=== PATIENT | male | born 1990 | race Caucasian/White ===

== ENCOUNTER 2025-01-16 10:17 | Outpatient (CLI) | payer MEDICAID, SELFPAY | END 2025-01-16 10:18 | disposition home or self-care (01) | PROVIDERS: Visit Provider Family Medicine | DX: S09.90XA Unspecified injury of head, initial encounter (principal); V49.40XA Driver injured in collision with unspecified motor vehicles in traffic accident, initial encounter; Y92.410 Unspecified street and highway as the place of occurrence of the external cause | CPT/HCPCS: A0425; A0427 ==

== ENCOUNTER 2025-01-16 10:49 | Emergency (ER) | payer MEDICAID, SELFPAY ==
[2025-01-16] VITALS (9 sets, daily range): BP systolic 119–130; BP diastolic 80–94; PULSE 65–79; RESP 20; TEMP 35.9; O2SAT 97–99; BMI 21.5
--- OUTSIDE RECORDS SUMMARY | 2025-01-16 10:51 | XMS_ITS | Clinical Summary ---
Author Organization [facility] Address [address] [place] [address] Care Team Providers Care Steel Pickler Name Role Phone Pcp, No Primary Care Provider Unavailabl e Allergies No known active allergies Medications albuterol HFA (ProAir HFA) 90 mcg/actuation inhalerIndicat ions:Acute viral bronchitis Inhale 1-2 Puffs by mouth every 6 hours if needed for Shortness Of Breath or Wheezing. 1 Each 2 Active benzonatate (TESSALON) 200 mg capsuleIndicat ions:Acute viral bronchitis Take 1 Capsule (200 mg) by mouth 3 times daily if needed for Cough. 20 Capsule 2 Active methylPREDNISo lone (MEDROL DOSEPAK) 4 mg tabletIndicati ons:Acute bilateral low back pain without sciatica Take by mouth as instructed per packaging. 21 Tablet 3 Active HYDROcodone-ac etaminophen (5-325 mg/tablet)[place] cations:Bulgin g lumbar disc Take 1 Tablet by mouth every 8 hours if needed (severe pain). Max acetaminophen dose: 4000 mg in 24 hrs. 8 Tablet 4 Active cyclobenzaprin e (FLEXERIL) 5 mg tabletIndicati ons:Bulging lumbar disc Take 1 Tablet (5 mg) by mouth 2 times daily if needed for Muscle Spasm. 10 Tablet 4 Active Active Problems Problem Noted Date Diagnosed Date Shoulder strain, left, subsequent encounter 11/2019 Work related injury 10/18/2019 Attention deficit hyperactiv ity disorder (ADHD), combined type 10/08/2019 Depression with anxiety 10/08/2019 Encounters Date Type Department Care Team Description 11/05/2024 9:12 AM MANUFACTURING TECH - 11/05/2024 9:42 AM MANUFACTURING TECH Emergency [facility] [address] [place] [address] Toñito Heath MD Dental infection (Primary Dx); Dental caries Discharge Disposition: Home Self Care 11/05/2024 Travel from Last 3 Months Immunizations Immunization Administration Dates Next Due Td, Preservative Free (age >= 7 Years) Social History Tobacco Use Types Packs/Day Years Used Date Smoking Tobacco: Former Smokeless Tobacco: Current Alcohol Use Standard Drinks/Week Comments Yes 0 (1 standard drink = 0.6 oz pur e alcohol) Social Connections Answer Date Recorded Frequency of Communication with Friends and Fami ly Not on file 10/17/2021 Financial Resource Strain Answer Date R ecorded Difficulty of Paying Living Expenses Not on file 10/17/2021 Difficulty of Paying Living Expenses Not on file 10/17/2021 Interpersonal Safety Answer Date Record ed Are you being hit, kicked, p ushed or yelled at (see row info)? No 11/05/2024 Interpersonal Safety Abuse 12 - 18 Not on file 11/05/2024 Interpersonal Safety Ambulatory Vulnerability No t on file 11/05/2024 Sex and Gender Information Value Date Recorded Sex Assigned at Not on file Legal Sex Male 1:13 PM MANUFACTURING TECH Gender Identity Not on file Sexual Orientation Not on file Obstetrics History Last Filed Vital Signs Vital Sign Reading Time Taken Comments Blood Pressure 128/80 11/05/2024 9:16 AM MANUFACTURING TECH Pulse 57 11/05/2024 9:16 AM MANUFACTURING TECH Temperature 36.7 C (98 F) 11/05/2024 9:16 AM MANUFACTURING TECH Respiratory Rate 16 11/05/2024 9:16 AM MANUFACTURING TECH Oxygen Saturation 98% 11/05/2024 9:16 AM MANUFACTURING TECH Inhaled Oxygen Concentration - - Weight 65.7 kg (144 lb 14.4 oz) 11/05/2024 9:22 AM MANUFACTURING TECH Height 175.3 cm (5' 9) 11/05/2024 9:22 AM MANUFACTURING TECH Body Mass Index 21.4 11/05/2024 9:22 AM MANUFACTURING TECH Plan of Treatment Health Maintenance Due Date Last Done Comments Tdap 2000 Depression screening for age 12+ 2001 HIV for age 15-65 2004 Hepatitis C screening for ag e 18-79 2007 BMI (ht and wt on same day) for age 18+ 02/17/2022 02/17/2021 COVID-19 vaccine series (2023- season) 2024 02/20/2021 Influenza Vaccine (#1) 2024 Lipids for age 35-44 2024 Tetanus booster 12/09/2030 12/09/2020 Pneumococcal series for age 6-49 Aged Out No longer eligible based on patient's age to complete this topic Insurance TRAILER [id number] [phone] AKOSUA MORENO TRAILER [phone] [phone] * Guarantor: LAON MENJIVARREEN Account Type Relation to Patient Date of Phone Billing Address [email or web address] [birth year][address] [place] [id number] ATTN A/P [address] [address] [place] [address] Care Teams Steel Pickler Relationship Specialty Start Date End Date Pcp, No . PCP - General 08/31/13
--- OUTSIDE RECORDS SUMMARY | 2025-01-16 10:51 | XMS_ITS | Clinical Summary ---
Author Organization [facility] Address [address] [place] [address] Care Team Providers Care Steamtable Worker Name Role Phone Lena Mendosa M.D. Primary Care Provider Source Comments Patient records contain information from all sites at [facility]. For routine questions regarding patient records, call [phone] during business hours, M-F 8:00 AM - 5:00 PM Central Time. Record requests for emergency care only can be directed to [phone] at any time.[facility] Allergies No known active allergies Medications * This document contains information received from the source organization and may not represent a complete record from that organization. ibuprofen (ADVIL,MOTRIN) 200 mg capsule Take 600 mg by mouth every 6 (six) hours as needed for pain. Active albuterol 90 mcg/actuation inhaler Inhale 1-2 puffs every 4 (four) hours as needed for shortness of breath. 18 g 3 3 Active gabapentin (Neurontin) 300 mg capsule Take 1 capsule (300 mg total) by mouth at bedtime. 90 capsule 3 4 Active Active Problems Problem Noted Date Diagnosed Date Pain Low Back Unspecified 03/02/2023 Overview (03/02/2023): Presents today with lower back pain that radiates to groin and down legs. Reports he was in a harness all day yesterday and already has back problems. Was working on the ground level and the harness jerked him backwards. States he didn't feel it until later on, has progressively gotten worse. Reports pain feels like pins and needles. Had sharp shooting pain on left side when driving here. Has been able to move his bowels and urinate normally. Denies saddle anesthesia. Assessment & Plan (03/02/2023 12:24 PM CDT): Chris Heath is a 32 y.o. male presenting today with lower back pain. It appears that this may be secondary to injury although it is unclear exactly when this happened. He denies any bowel or bladder symptoms or saddle anesthesia. However, given the acute nature of this injury I am concerned that there may be an injury compromising his nervous system. As MRI imaging of the lumbar spine is likely days out, I have recommended that he proceed to the emergency department for expedited evaluation and pain management. His is present with his 2 young children. His daughter is currently at daycare and needs to be picked up. His has a leraner's permit and cannot drive unaccompanied. Therefore, they can not present immediately to the emergency department. They have planned to have her drive him home and he will return to the emergency department today with a friend driving him. Strict return precautions were given including reasons to call an ambulance. He was instructed not to drive, lift heavy items, and to rest as much as possible. I recommended Tylenol and/or ibuprofen for pain management. I have not prescribed any medications that may cloud the sensorium as his has a learner's permit and he must be present in the car with her driving. Additional pain management can be considered when he presents to the emergency department. Abuse Tobacco Smoking 12/10/2022 Attention Deficit Disorder Combined Type 019 Other Specified Anxiety Disorders 10/08/2019 Resolved Problems Problem Noted Date Diagnosed Date Resolved Date Pain Groin 03/02/2023 03/02/2023 Overview (03/02/2023): Chris Heath is a 32 y.o. male presents today with groin pain. Encounters Date Type Department Care Team Description 11/20/2024 Orders Only [facility]CP [facility] Lena Mendosa M.D. Screening Lipid from Last 3 Months Immunizations Immunization Administration Dates Next Due DTaP (Infanrix, Tripedia) 07/22/1994,03/1991,08/10/1990,1989,1989 Hib (PRP-OMP) (PedvaxHIB) 02/19/1991 IPV 07/22/1994, 1,03/22/1990,1989 Influenza, Unspecified 08/18/2009 MMR 02/19/1991 PCV20 12/10/2022 Polio, Unspecified 07/22/1994, 1,03/22/1990,1989 Td (Adult), adsorbed 08/18/2009 Td Preservative Free (TENIVA C, DECAVAC) 12/09/2020 Tdap 08/09/2013,01/11/2011 influenza vaccine quad (FLUZONE/FLUARIX) (6 months and older)(PF) 12/10/2022 Social History Tobacco Use Types Packs/Day Years Used Date Smoking Tobacco: Every Day Cigarettes Started: 2013 Passive Smoke Exposure: Current Smokeless Tobacco: Never Tobacco Cessation:Ready to Q uit: Not Asked; Counseling Given: Not Answered Alcohol Use Standard Drinks/Week Comments Yes 0 (1 standard drink = 0.6 oz pur e alcohol) PHQ-2 Answer Date Recorded PHQ-2 Score 0 06/06/2024 Dental Answer Date Recorded Dental: Regular Dentist Unknown 12/11/19 Sex and Gender Information Value Date Recorded Sex Assigned at Not on file Legal Sex Male 2:40 PM FIREWORKS ASSEMBLER Gender Identity Not on file Sexual Orientation Not on file Last Filed Vital Signs Vital Sign Reading Time Taken Comments Blood Pressure 110/69 06/06/2024 12:40 PM CDT Pulse 66 06/06/2024 12:40 PM CDT Temperature 36.3 C (97.3 F) 12/10/2022 7:35 AM FIREWORKS ASSEMBLER Respiratory Rate - - Oxygen Saturation - - Inhaled Oxygen Concentration - - Weight 63.4 kg (139 lb 12.4 oz) 024 12:40 PM CDT Height 175 cm (5' 8.9) 12/10/2022 7:35 AM FIREWORKS ASSEMBLER Body Mass Index 20.7 12/10/2022 7:35 AM FIREWORKS ASSEMBLER Plan of Treatment Health Maintenance Due Date Last Done Comments HIV Screening 1989 Hepatitis C Screening 1989 Lipid (Cholesterol) Screening 1989 Tobacco Cessation counseling 1989 Hepatitis B Vaccines (1 of 3 - 19+ 3-dose series) 2008 COVID-19 Vaccine (2 - season) 2024 02/20/2021 Influenza Vaccine (#1) 2024 12/10/2022, 2008 Depression Screening (Annual PHQ-2) 10/17/2024 06/06/2024 DTaP,Tdap,and Td Vaccines (9 - Td or Tdap) 12/09/2030 12/09/2020, 08/09/2013, 01/11/2011, Additional history exists IPV Vaccines Completed 07/22/1994, 03/1994, 02/19/1991, Additional history exists Pneumococcal vaccine (0-49 years) Completed 12/10/2022 HPV Vaccines Aged Out No longer eligi ble based on patient's age to complete this topic Care Teams Steamtable Worker Relationship Specialty Start Date End Date Lena Mendosa M.D. NPDestini: [phone] [address] [place] [address] PCP - General Family Medicine 05/22/24
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
--- OUTSIDE RECORDS SUMMARY | 2025-01-16 12:09 | XMS_ITS | Clinical Summary ---
Author Organization [employer] [facility] Address [address] [place] [address] Care Team Providers Care Offset Platemaker Name Role Phone Pcp, No Primary Care [...] Department Care Team Description 11/05/2024 9:12 AM DATABASE MODELER - 11/05/2024 9:42 AM DATABASE MODELER Emergency [facility] [address] [place] [address] Toñito Heath MD Dental infection (Primary Dx); [...] on file Legal Sex Male 1:13 PM DATABASE MODELER Gender Identity Not on file Sexual Orientation Not on file Obstetrics History Last Filed Vital Signs Vital Sign Reading Time Taken Comments Blood Pressure 128/80 11/05/2024 9:16 AM DATABASE MODELER Pulse 57 11/05/2024 9:16 AM DATABASE MODELER Temperature 36.7 C (98 F) 11/05/2024 9:16 AM DATABASE MODELER Respiratory Rate 16 11/05/2024 9:16 AM DATABASE MODELER Oxygen Saturation 98% 11/05/2024 9:16 AM DATABASE MODELER Inhaled Oxygen Concentration - - Weight 65.7 kg (144 lb 14.4 oz) 11/05/2024 9:22 AM DATABASE MODELER Height 175.3 cm (5' 9) 11/05/2024 9:22 AM DATABASE MODELER Body Mass Index 21.4 11/05/2024 9:22 AM DATABASE MODELER Plan of Treatment Health Maintenance Due Date [...] to complete this topic Insurance TRAIL[address] [phone] AKOSUA MORENO TRAILER [phone] [place] [phone] * Guarantor: LOAN MENJIVARREEN Account Type Relation to Patient Date of Phone Billing Address [facility] 1980 [place] [id number] ATTN A/P [address] [address] [place] [address] Care Teams Offset Platemaker Relationship Specialty Start Date End Date Pcp, No . PCP - General 08/31/13
--- OUTSIDE RECORDS SUMMARY | 2025-01-16 12:09 | XMS_ITS | Clinical Summary ---
Author Organization [facility] Address [address] [place] [address] Care Team Providers Care Rig Mechanic Name Role Phone Lena Mendosa M.D. Primary Care Provider Source Comments Patient records contain information from all sites at [facility]. For routine questions regarding patient records, call [phone] during business hours, M-F 8:00 AM - 5:00 PM Central Time. Record requests for emergency care only can be directed to [phone] at any time.[facility] Allergies No known active allergies Medications * [...] on file Legal Sex Male 2:40 PM OCCUPATIONAL THERAPIST ASSISTANT Gender Identity Not on file Sexual Orientation Not on file Last Filed Vital Signs Vital Sign Reading Time Taken Comments Blood Pressure 110/69 06/06/2024 12:40 PM CDT Pulse 66 06/06/2024 12:40 PM CDT Temperature 36.3 C (97.3 F) 12/10/2022 7:35 AM OCCUPATIONAL THERAPIST ASSISTANT Respiratory Rate - - Oxygen Saturation - - Inhaled Oxygen Concentration - - Weight 63.4 kg (139 lb 12.4 oz) 024 12:40 PM CDT Height 175 cm (5' 8.9) 12/10/2022 7:35 AM OCCUPATIONAL THERAPIST ASSISTANT Body Mass Index 20.7 12/10/2022 7:35 AM OCCUPATIONAL THERAPIST ASSISTANT Plan of Treatment Health Maintenance Due Date [...] age to complete this topic Care Teams Rig Mechanic Relationship Specialty Start Date End Date Lena Mendosa M.D. NPDestini: [phone] [address] [place] [address] PCP - General Family Medicine 05/22/24
--- NOTE | 2025-01-16 13:10 | ED.NURSE ---
Report to [facility].
== END 2025-01-16 13:13 | disposition other institution (70) ==
PROVIDERS: Emergency Provider Emergency Medicine Emergency Medical Services
DX: S12.401A Unspecified nondisplaced fracture of fifth cervical vertebra, initial encounter for closed fracture (principal); S12.501A Unspecified nondisplaced fracture of sixth cervical vertebra, initial encounter for closed fracture; V43.52XA Car driver injured in collision with other type car in traffic accident, initial encounter
CPT/HCPCS: 70450; 72125; 76604; 76705; 93308; 99285; 99291; G0390

== ENCOUNTER 2025-01-16 12:38 | Outpatient (CLI) | payer MEDICAID, SELFPAY | END 2025-01-16 12:39 | disposition home or self-care (01) | LOC: AMB 01-18 08:23 | PROVIDERS: Visit Provider Family Medicine | DX: S12.500A Unspecified displaced fracture of sixth cervical vertebra, initial encounter for closed fracture (principal); S12.400A Unspecified displaced fracture of fifth cervical vertebra, initial encounter for closed fracture | CPT/HCPCS: A0425; A0427 ==